=== PATIENT | male | born 1965 | race African-American/Black ===

== ENCOUNTER 2017-03-21 11:45 | Emergency (ER) | payer OTHER ==
[~2017-03-21] VITALS: Ht 172.7 cm; Wt 98.7 kg
[~2017-03-21 11:45] MED LIST: FLEXERIL5 MG PO; MOTRIN600 MG PO; MOTRIN800 MG PO; TRAMADOL HCL50 MG PO
[2017-03-21 11:55] VITALS: BP 142/84
[2017-03-21] MEDS ORDERED: SKELAXIN800 MG PO (14:09)
== END 2017-03-21 14:00 | disposition home or self-care (01) ==
LOC: EME 11:45
DX: S16.1XXA Strain of muscle, fascia and tendon at neck level, initial encounter (principal); V49.50XA Passenger injured in collision with unspecified motor vehicles in traffic accident, initial encounter; Y92.481 Parking lot as the place of occurrence of the external cause; M41.9 Scoliosis, unspecified; M19.90 Unspecified osteoarthritis, unspecified site; G47.30 Sleep apnea, unspecified; Z99.81 Dependence on supplemental oxygen; Z88.0 Allergy status to penicillin
CPT/HCPCS: 72040; 99281; 99284